=== PATIENT | male | born 1970 | race Asian ===

== ENCOUNTER 2018-05-21 20:27 | Emergency (ER) | payer OTHER ==
[~2018-05-21] VITALS: Ht 185.4 cm; Wt 113.4 kg
[~2018-05-21 20:27] MED LIST: ALUM320SU PO; AMIT75; B-100 Complex1 EACH; BUPR150ER PO; Budeprion Xl300 MG PO; CALCIUM CITRAT1 EACH PO; CEPH500 PO; CLON.1 PO; COSAMIN DS CAP1 EAC1 PO; CRUTCH2 USE; CYPIONATE; Cinnamon500 MG; Clomiphene Citr50 MG PO; DEXT10ER; DEXT15ER; DIPH25; DOXY100; DULO30 PO; Depo-Testo100 MG/1 M IM; Fish Oil Conc1000 MG PO; GABA600 PO; GLUC500; IBUHYD; K-Dur20 MEQ PO; LIDO2TG30 TOP; LISI20; LORA1; LORA1 PO; LORA2; LYSINE TP; MELA3; MULVIT; MULVITB&C; Multiple Vitam1 EAC1 PO; NAPR220; NAPR500; OMEG1CAP30 PO; OMEGA 3; OXYACE5T PO; OXYC10TA19 PO; PANT40 PO; POTASSIUM GLUCO99 MG PO; POTCHL20ER PO; PRAV20 PO; PREG200 PO; Prazosin HCl2 MG PO; Prinivil10 MG PO; QUET300; RA VITAMIN C 5500 MG PO; Seroquel Xr400 MG PO; Seroquel Xr50 MG PO; TESTOSTERONE CYP; TESTTP; TOPI100; TRAM50; TRAM50 PO; VITAMIN D35000 UNIT PO; [UNRECOGNIZED DRUG - CODE] PO; [UNRECOGNIZED DRUG - OTHER]; methylin
[2018-05-21 21:27] LABS: BASOPHILS ABSOLUTE AUTO 0.03 K/mm3 (0.00-0.23); BASOPHILS PERCENT AUTO 0 % (0-2); EOSINOPHILS ABSOLUTE AUTO 0.09 K/mm3 (0.00-0.68); EOSINOPHILS PERCENT AUTO 1 % (0-6); Hematocrit 44.8 % (37.0-53.0); Hemoglobin 14.6 g/dL (13.5-17.5); IMMATURE GRAN ABSOLUTE AUTO 0.08 K/mm3 (0.00-0.10); IMMATURE GRAN PERCENT AUTO 1 % (0-1); LYMPHOCYTES ABSOLUTE AUTO 2.68 K/mm3 (0.84-5.20); LYMPHOCYTES PERCENT AUTO 19 % (21-46); MONOCYTES ABSOLUTE AUTO 0.71 K/mm3 (0.16-1.47); MONOCYTES PERCENT AUTO 5 % (4-13); Mean Corpuscular HGB 30.5 pg (26.0-34.0); Mean Corpuscular HGB Conc 32.6 g/dL (31.5-36.5); Mean Corpuscular Volume 94 fL (80-100); Mean Platelet Volume 9.8 fL (9.1-12.4); NEUTROPHILS ABSOLUTE AUTO 10.43 K/mm3 (1.96-9.15); NEUTROPHILS PERCENT AUTO 74 % (41-73); Platelet Count 304 K/mm3 (150-400); RDW Coefficient Variation 13.1 % (11.7-14.2); RDW Standard Deviation 44.6 fL (35.1-46.3); Red Blood Cell Count 4.78 M/mm3 (4.30-5.90); White Blood Cell Count 14.02 K/mm3 (4.00-11.30)
[2018-05-21 21:37] LABS: Alanine Aminotransfer (ALT/SGP 53 U/L (12-78); Albumin, Blood 3.9 g/dL (3.4-5.0); Alk Phos 81 U/L (50-136); Anion Gap 8 mmol/L (6-16); Aspartate Aminotrans (AST/SGOT 15 U/L (12-37); Bilirubin, Total 0.5 mg/dL (0.1-1.0); Blood Urea Nitrogen 12 mg/dL (8-24); Bun/Creatinine Ratio 11.1 (12.0-20.0); CO2, Blood 25 mmol/L (21-32); Calcium, Blood 8.4 mg/dL (8.5-10.1); Chloride, Blood 104 mmol/L (98-108); Creatinine, Blood 1.08 mg/dL (0.60-1.20); Globulin, Blood 3.9 g/dL (2.2-4.0); Glomerular Filtration Rate >60 (60-); Glucose, Blood 122 mg/dL (70-99); Potassium, Blood 4.6 mmol/L (3.5-5.5); Sodium, Blood 137 mmol/L (136-145); Total Protein, Blood 7.8 g/dL (6.4-8.2)
[2018-05-21] MEDS ORDERED: Magnesium Citr296 ML PO (22:19)
== END 2018-05-21 23:08 | disposition home or self-care (01) ==
LOC: ER 20:27
PROVIDERS: Emergency Medicine
DX: K59.00 Constipation, unspecified (principal); I12.9 Hypertensive chronic kidney disease with stage 1 through stage 4 chronic kidney disease, or unspecified chronic kidney disease; N18.9 Chronic kidney disease, unspecified; E11.22 Type 2 diabetes mellitus with diabetic chronic kidney disease; E78.5 Hyperlipidemia, unspecified; F25.9 Schizoaffective disorder, unspecified
CPT/HCPCS: 74176; 80053; 83690; 85025; 96374; 96375; 99284-25; J1170; J2060

== ENCOUNTER → 2019-04-19 | Outpatient (CLI) | payer OTHER ==
[~2019-04-19] MED LIST changes: +Magnesium Citr296 ML PO
[2019-04-19 19:00] LABS: U Amphetamine Screen Not Detected; U Barbituate Screen Not Detected; U Benzodiazapine Screen DETECTED; U Buprenorphine Screen Not Detected; U Cannabinoids Screen Not Detected; U Cocaine Screen Not Detected; U Methadone Screen Not Detected; U Methamphetamine Screen Not Detected; U Opiates Screen Not Detected; U Oxycodone Screen Not Detected; U Phencyclidine Screen Not Detected; U Propoxyphene Screen Not Detected
== END | disposition home or self-care (01) ==
LOC: LAB 12:00 → LAB SHORT 12:00
PROVIDERS: Psychiatry & Neurology Psychiatry
DX: Z51.81 Encounter for therapeutic drug level monitoring (principal); Z79.899 Other long term (current) drug therapy

== ENCOUNTER 2020-01-21 08:38 | Emergency (ER) | payer OTHER ==
[~2020-01-21] VITALS: Ht 182.9 cm; Wt 113.4 kg
[2020-01-21 09:53] LABS: BASOPHILS ABSOLUTE AUTO 0.05 K/mm3 (0.00-0.23); BASOPHILS PERCENT AUTO 0 % (0-2); EOSINOPHILS ABSOLUTE AUTO 0.28 K/mm3 (0.00-0.68); EOSINOPHILS PERCENT AUTO 2 % (0-6); Hematocrit 44.8 % (37.0-53.0); IMMATURE GRAN ABSOLUTE AUTO 0.05 K/mm3 (0.00-0.10); IMMATURE GRAN PERCENT AUTO 0 % (0-1); LYMPHOCYTES ABSOLUTE AUTO 1.99 K/mm3 (0.84-5.20); LYMPHOCYTES PERCENT AUTO 14 % (21-46); MONOCYTES ABSOLUTE AUTO 0.85 K/mm3 (0.16-1.47); MONOCYTES PERCENT AUTO 6 % (4-13); Mean Corpuscular HGB 31.5 pg (26.0-34.0); Mean Corpuscular HGB Conc 33.5 g/dL (31.5-36.5); Mean Corpuscular Volume 94 fL (80-100); Mean Platelet Volume 9.1 fL (9.1-12.4); NEUTROPHILS ABSOLUTE AUTO 11.08 K/mm3 (1.96-9.15); NEUTROPHILS PERCENT AUTO 78 % (41-73); Platelet Count 230 K/mm3 (150-400); RDW Coefficient Variation 13.5 % (11.7-14.2); RDW Standard Deviation 46.2 fL (35.1-46.3); Red Blood Cell Count 4.76 M/mm3 (4.30-5.90)
[2020-01-21 10:03] LABS: Source, Urine Clean Catch
[2020-01-21 10:08] LABS: Bilirubin, Urine Neg (Neg); Blood, Urine Neg (Neg); Glucose Qualitative, Urine 1+ (Neg); Ketones, Urine 1+ (Neg); Leukocyte Esterase, Urine Neg (Neg); Nitrite, Urine Neg (Neg); Protein, Urine 1+ (Neg); Specific Gravity, Urine 1.025 (1.003-1.022); Urobilinogen, Urine NORM (Normal)
[2020-01-21 10:11] LABS: Alanine Aminotransfer (ALT/SGP 45 U/L (12-78); Albumin, Blood 3.5 g/dL (3.4-5.0); Albumin/Globulin Ratio 1.1 (0.8-1.8); Alk Phos 78 U/L (50-136); Anion Gap 4 mmol/L (6-16); Aspartate Aminotrans (AST/SGOT 41 U/L (12-37); Bilirubin, Total 0.4 mg/dL (0.1-1.0); Blood Urea Nitrogen 15 mg/dL (8-24); Bun/Creatinine Ratio 12.3 (12.0-20.0); CO2, Blood 25 mmol/L (21-32); Calcium, Blood 8.3 mg/dL (8.5-10.1); Chloride, Blood 109 mmol/L (98-108); Creatinine, Blood 1.22 mg/dL (0.60-1.20); Globulin, Blood 3.2 g/dL (2.2-4.0); Glomerular Filtration Rate >60 (60-); Glucose, Blood 101 mg/dL (70-99); Potassium, Blood 3.8 mmol/L (3.5-5.5); Sodium, Blood 138 mmol/L (136-145); Total Protein, Blood 6.7 g/dL (6.4-8.2)
[2020-01-21 10:13] LABS: Appearance, Urine Clear (Clear); Color, Urine Yellow (P-Yellow)
[2020-01-21 10:26] LABS: U Amphetamine Screen Not Detected; U Barbituate Screen Not Detected; U Benzodiazapine Screen DETECTED; U Buprenorphine Screen Not Detected; U Cannabinoids Screen DETECTED; U Cocaine Screen Not Detected; U Methadone Screen Not Detected; U Methamphetamine Screen Not Detected; U Opiates Screen Not Detected; U Oxycodone Screen Not Detected; U Phencyclidine Screen Not Detected; U Propoxyphene Screen Not Detected
== END 2020-01-21 11:29 | disposition home or self-care (01) ==
LOC: ER 08:38
PROVIDERS: Emergency Medicine
DX: R45.1 Restlessness and agitation (principal); G93.40 Encephalopathy, unspecified; Z79.899 Other long term (current) drug therapy
CPT/HCPCS: 70450; 80053; 85025; 96360; 96372-59; 99285-25; J7030

== ENCOUNTER 2020-01-23 11:31 | Emergency (ER) | payer OTHER ==
[~2020-01-23] VITALS: Ht 182.9 cm; Wt 113.4 kg
[2020-01-23 12:16] LABS: Source, Urine Clean Catch
[2020-01-23 12:21] LABS: BASOPHILS ABSOLUTE AUTO 0.05 K/mm3 (0.00-0.23); BASOPHILS PERCENT AUTO 0 % (0-2); EOSINOPHILS ABSOLUTE AUTO 0.29 K/mm3 (0.00-0.68); EOSINOPHILS PERCENT AUTO 2 % (0-6); Hematocrit 47.6 % (37.0-53.0); Hemoglobin 15.2 g/dL (13.5-17.5); IMMATURE GRAN ABSOLUTE AUTO 0.07 K/mm3 (0.00-0.10); IMMATURE GRAN PERCENT AUTO 1 % (0-1); LYMPHOCYTES ABSOLUTE AUTO 1.58 K/mm3 (0.84-5.20); LYMPHOCYTES PERCENT AUTO 12 % (21-46); MONOCYTES ABSOLUTE AUTO 0.83 K/mm3 (0.16-1.47); MONOCYTES PERCENT AUTO 6 % (4-13); Mean Corpuscular HGB 30.4 pg (26.0-34.0); Mean Corpuscular HGB Conc 31.9 g/dL (31.5-36.5); Mean Corpuscular Volume 95 fL (80-100); Mean Platelet Volume 9.4 fL (9.1-12.4); NEUTROPHILS ABSOLUTE AUTO 10.22 K/mm3 (1.96-9.15); NEUTROPHILS PERCENT AUTO 78 % (41-73); Platelet Count 244 K/mm3 (150-400); RDW Coefficient Variation 13.6 % (11.7-14.2); RDW Standard Deviation 47.6 fL (35.1-46.3); White Blood Cell Count 13.04 K/mm3 (4.00-11.30)
[2020-01-23 12:23] LABS: Bilirubin, Urine Neg (Neg); Blood, Urine 1+ (Neg); Glucose Qualitative, Urine Neg (Neg); Ketones, Urine Neg (Neg); Leukocyte Esterase, Urine 1+ (Neg); Nitrite, Urine Neg (Neg); Protein, Urine 1+ (Neg); Specific Gravity, Urine 1.015 (1.003-1.022); Urobilinogen, Urine NORM (Normal)
[2020-01-23 12:31] LABS: Appearance, Urine Clear (Clear); Color, Urine Yellow (P-Yellow)
[2020-01-23 12:32] LABS: Bacteria Rare /hpf; Granular Casts 0-2 /lpf (0); Red Blood Cells, Urine 0-2 /hpf (0-2); Squamous Epithelial Cells Not Seen /hpf (Few); White Blood Cells, Urine 0-2 /hpf (0-5)
[2020-01-23 12:37] LABS: U Amphetamine Screen Not Detected; U Barbituate Screen Not Detected; U Benzodiazapine Screen DETECTED; U Buprenorphine Screen Not Detected; U Cannabinoids Screen DETECTED; U Cocaine Screen Not Detected; U Methadone Screen Not Detected; U Methamphetamine Screen Not Detected; U Opiates Screen Not Detected; U Oxycodone Screen Not Detected; U Phencyclidine Screen Not Detected; U Propoxyphene Screen Not Detected
[2020-01-23 12:54] LABS: Albumin, Blood 3.6 g/dL (3.4-5.0); Bilirubin, Total 0.5 mg/dL (0.1-1.0); Bun/Creatinine Ratio 7.9 (12.0-20.0); Calcium, Blood 8.2 mg/dL (8.5-10.1); Creatine Kinase MB 4.8 ng/mL (0.0-3.6); Creatine Kinase MB Index 0.6 (0.0-4.0); Creatinine, Blood 1.39 mg/dL (0.60-1.20); Globulin, Blood 3.6 g/dL (2.2-4.0); Potassium, Blood 3.9 mmol/L (3.5-5.5); Total Protein, Blood 7.2 g/dL (6.4-8.2)
[2020-01-23 13:00] LABS: Ethanol (Alcohol), Blood, Med <3 mg/dL; Thyroxine (T4) 5.8 ug/dL (4.5-12.1)
[2020-01-23 13:20] LABS: Acetaminophen, Random <2.0 ug/mL (10.0-30.0); Salicylate <1.7 mg/dL (2.8-20.0); Thyroid Stimulating Hormone 0.546 uIU/mL (0.360-4.800)
== END 2020-01-23 14:03 | disposition left against medical advice (07) ==
LOC: ER 11:31
PROVIDERS: Emergency Medicine
DX: R45.1 Restlessness and agitation (principal); I10 Essential (primary) hypertension; E11.9 Type 2 diabetes mellitus without complications; E78.5 Hyperlipidemia, unspecified; F25.9 Schizoaffective disorder, unspecified; F17.200 Nicotine dependence, unspecified, uncomplicated; Z53.20 Procedure and treatment not carried out because of patient's decision for unspecified reasons; Z79.899 Other long term (current) drug therapy; Z91.041 Radiographic dye allergy status; Z88.6 Allergy status to analgesic agent; Z88.8 Allergy status to other drugs, medicaments and biological substances
CPT/HCPCS: 36415; 80053; 81001; 82550; 82553; 84436; 84443; 85025; 87086; 96372; 99284-25; G0480; J7030